=== PATIENT | female | born 1985 | race Caucasian/White ===

== ENCOUNTER 2019-05-26 00:57 | Observation (INO) | payer MEDICAID ==
[2019-05-26] MEDS ORDERED: Clindamycin Phosphate 900 MG/6 ML SDV ONE (01:58)
[2019-05-26] MEDS ORDERED: Sodium Chloride 0.9% 100 ML ONE (01:59)
[2019-05-26] MEDS ORDERED: Clindamycin Phosphate 900 MG in Sodium Chloride 0.9% 100 ML IV ONE (02:00)
[2019-05-26] MEDS ORDERED: ePHEDrine 50 MG/ML SDV IVPUSH PRN ×2 (02:51→03:15)
[2019-05-26] MEDS ORDERED: Sodium Chloride 0.9% 10 ML Syringe FLUSH PRN ×2 (02:51→03:15)
[2019-05-26] MEDS ORDERED: Lactated Ringers 1,000 ML IV ONE (02:51)
[2019-05-26] MEDS ORDERED: Sodium Chloride 0.9% 1,000 ML IV SCH (03:00)
[2019-05-26] MEDS ORDERED: diphenhydrAMINE 50 MG/ML SDV IVPUSH PRN ×2 (03:15)
[2019-05-26] MEDS ORDERED: Naloxone 0.4 MG/ML SDV IVPUSH PRN (03:15)
--- NOTE | 2019-05-26 03:49 | PCM.PNLD ---
Labor Progress Note - VS & Meds Active Medications: Current Medications Diphenhydramine HCl (Benadryl) 25 mg IVPUSH Q6H PRN PRN Reason: Itching Diphenhydramine HCl (Benadryl) 50 mg IVPUSH Q6H PRN PRN Reason: Itching Ephedrine Sulfate (Ephedrine Sulfate) 10 mg IVPUSH ASDIRECTED PRN PRN Reason: Hypotension Lactated Ringer's (Ringers, Lactated) 1,000 mls @ 999 mls/hr IV .BOLUS ONE Stop: 05/26/19 03:51 Last Admin: 05/26/19 02:00 Dose: 999 mls/hr Sodium Chloride (Normal Saline) 1,000 mls @ 125 mls/hr IV ASDIRECTED SANTHOSH Last Admin: 05/26/19 03:28 Dose: 125 mls/hr Clindamycin Phosphate 900 mg/ (Sodium Chloride) 106 mls @ 212 mls/hr IV Q8H SANTHOSH Oxytocin 20 unit/ Lactated (Ringer's) 1,002 mls @ 125 mls/hr IV NOW ONE Stop: 05/26/19 11:15 Naloxone HCl (Narcan) 0.1 mg IVPUSH ASDIRECTED PRN PRN Reason: Oversedation Sodium Chloride (Saline Flush) 10 ml FLUSH ASDIRECTED PRN PRN Reason: Keep Vein Open Discontinued Medications Clindamycin Phosphate (Cleocin) Confirm Administered Dose 900 mg .ROUTE .STK- MED ONE Stop: 05/26/19 01:59 Last Admin: 05/26/19 03:28 Dose: Not Given Ephedrine Sulfate (Ephedrine Sulfate) 10 mg IVPUSH ASDIRECTED PRN PRN Reason: Hypotension Sodium Chloride (Normal Saline) Confirm Administered Dose 100 mls @ as directed .ROUTE .STK-MED ONE Stop: 05/26/19 02:00 Last Admin: 05/26/19 03:29 Dose: Not Given Clindamycin Phosphate 900 mg/ (Sodium Chloride) 106 mls @ 200 mls/hr IV ONETIME ONE Stop: 05/26/19 02:31 Last Admin: 05/26/19 03:26 Dose: 200 mls/hr Sodium Chloride (Saline Flush) 10 ml FLUSH ASDIRECTED PRN PRN Reason: Keep Vein Open - Uterine Contractions Contraction Intensity: Mild - Monitoring Monitor Mode: Doppler/Auscultation Heart Rate (FHR) Variability: Moderate (6-25 bmp) Accelerations: Present, 15x15 Decelerations: None Strip Review: Category I - Vaginal Exam Dilation (cm): 3 Effacement (Percent): 75 Station: -1 Cervical Position: Posterior Sterile Vaginal Exam Performed By: Georgiana Jean Vaginal Exam Comment: no cerivcal change for two hours - Labor Progress (Free Text) Labor Progress: no labor progress. going home reviewed signs and symptoms of when to return
[2019-05-26] MEDS ORDERED: Clindamycin Phosphate 900 MG in Sodium Chloride 0.9% 100 ML IV SCH (10:00)
== END 2019-05-26 04:00 | disposition home or self-care (01) ==
LOC: JP.OBCHECK 00:57 → JP.OB 01:10
PROVIDERS: ADMIT Nurse Practitioner Family; ATTEND Nurse Practitioner Family
DX: O47.1 False labor at or after 37 completed weeks of gestation (principal); O98.813 Other maternal infectious and parasitic diseases complicating pregnancy, third trimester; B95.1 Streptococcus, group B, as the cause of diseases classified elsewhere; Z3A.38 38 weeks gestation of pregnancy; Z88.0 Allergy status to penicillin; Z79.899 Other long term (current) drug therapy
CPT/HCPCS: 36415; 80305-QW; 81001; 85025; 96361; 96374; 99211; G0378; J3490; J7030; J7120

== ENCOUNTER 2019-05-26 07:40 | Inpatient (IN) | payer MEDICAID ==
[2019-05-26] MEDS ORDERED: Acetaminophen 325 MG Tab PO PRN (07:53)
[2019-05-26] MEDS ORDERED: Sodium Chloride 0.9% 10 ML Syringe FLUSH PRN ×2 (07:53→07:58)
[2019-05-26] MEDS ORDERED: ePHEDrine 50 MG/ML SDV IVPUSH PRN (07:58)
[2019-05-26] MEDS ORDERED: Naloxone 0.4 MG/ML SDV IVPUSH PRN (07:58)
[2019-05-26] MEDS ORDERED: diphenhydrAMINE 50 MG/ML SDV IVPUSH PRN ×2 (07:58)
--- NOTE | 2019-05-26 08:15 | PCM.LDHP ---
L&D History of Present Illness - General Date of Service: 05/26/19 (active labor) Admit Problem/Dx: Patient Status Order with Admit Dx/Problem 05/26/19 07:53 Patient Status [ADT] Routine Admission Diagnosis/Problem Admission Diagnosis/Problem Source of Information: Patient History Limitations: Reports: No Limitations - History of Present Illness Introduction:: This 34 year old presents in active labor. 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 Patient states contractions got stronger and felt she needed to return. Labs: ABO B neg, had Rhogam at 29 weeks, Rubella immune, HIV neg, GBS positive ( treated during the night at 0200) Timing/Duration: Reports: minutes: (2-3) Location, : Reports: Abdomen Quality: Reports: Pressure Severity: Moderate Improves with: Reports: None Worsens with: Reports: None - Related Data Allergies/Adverse Reactions: Allergies Allergy/AdvReac Type Severity Reaction Status Date / Time amoxicillin [Amoxicillin] Allergy Hives Verified 04/16/14 16:06 Home Medications: Home Meds Vits #93/Iron Fum/FA [ Formula Tablet] 1 each PO DAILY [History] Acetaminophen [Tylenol] 325 mg PO Q4H PRN 05/26/19 [History] Cinnamon Bark [Cinnamon] 500 mg PO DAILY 05/26/19 [History] Past Medical History - Past Health History Medical/Surgical History: Denies 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: : 4 Para: 3 LMP (Approximate): (DIONNA 06/04/19) H&P Review of Systems - Review of Systems: Review Of Systems: See Below General: Reports: No Symptoms HEENT: Reports: No Symptoms Pulmonary: Reports: No Symptoms Cardiovascular: Reports: No Symptoms Gastrointestinal: Reports: No Symptoms Genitourinary: Reports: No Symptoms Musculoskeletal: Reports: No Symptoms Skin: Reports: No Symptoms Psychiatric: Reports: No Symptoms Neurological: Reports: No Symptoms Hematologic/Lymphatic: Reports: No Symptoms Immunologic: Reports: No Symptoms L&D Exam - Exam Exam: See Below - OB Specific Contraction Intensity: Moderate to Strong Movement: Active Heart Tones: Present Heart Tones per Min: 140 Heart Rate (FHR) Variability: Moderate (6-25 bmp) Presentation: Vertex Estimated Weight: 6 pounds - Savage Score Savage Score Cervix Position: Anterior Savage Score Consistency: Soft Savage Score Effacement: >80% Savage Score Dilation: 3-4 cm Savage Score 's Station: -1 ,0 Savage Score Total: 11 - Exam General: Alert, Oriented HEENT: PERRLA, Conjunctiva Clear, EACs Clear, EOMI, Hearing Intact, Mucosa Moist & [place], Nares Patent, Normal Nasal Septum, Posterior Pharynx Clear, TMs Clear Neck: Supple, Trachea Midline Lungs: Clear to Auscultation, Normal Respiratory Effort Cardiovascular: Regular Rate, Regular Rhythm GI/Abdominal Exam: Normal Bowel Sounds, Soft, Non-Tender, No Organomegaly, No Distention, No Abnormal Bruit, No Mass, Pelvis Stable Rectal Exam: Normal Exam, Normal Rectal Tone Genitourinary: Normal external exam, Normal bimanual exam, Normal speculum exam Back Exam: Normal Inspection, Full Range of Motion Extremities: Normal Inspection, Normal Range of Motion, Non-Tender, No Pedal Edema, Normal Capillary Refill Skin: Warm, Dry, Intact Neurological: Cranial Nerves Intact, Reflexes Equal Bilateral Psychiatric: Alert, Normal Affect, Normal Mood - Problem List (1) Active labor at term SNOMED Code(s): 09477507 ICD Code: [id number] - Status: Acute Current Visit: Yes (2) Normal SNOMED Code(s): 10322222 ICD Code: Z34.90 - ENCNTR FOR SUPRVSN OF NORMAL , UNSP, UNSP TRIMESTER Status: Acute Current Visit: Yes (3) GBS (group B Streptococcus carrier), +RV culture, currently SNOMED Code(s): 7133394445443, 997816367, 3281704639208 ICD Code: O99.820 - STREPTOCOCCUS B CARRIER STATE COMPLICATING Status: Acute Current Visit: Yes Problem List Initiated/Reviewed/Updated: Yes Orders Last 24hrs: Active Orders 24 hr Category Date Time Status Patient Status [ADT] Routine ADT 05/26/19 07:53 Active Ambulate [RC] PER UNIT ROUTINE Care 05/26/19 07:53 Active Communication Order [RC] ASDIRECTED Care 05/26/19 07:53 Active Communication Order [RC] ROUTINE Care 05/26/19 07:59 Active Communication Order [RC] ROUTINE Care 05/26/19 07:59 Active Communication Order [RC] ROUTINE Care 05/26/19 07:59 Active Heart Tones [RC] PER UNIT ROUTINE Care 05/26/19 07:53 Active Non Stress Test [RC] Click to Edit Care 05/26/19 07:53 Active May Shower [RC] ASDIRECTED Care 05/26/19 07:53 Active Notify Provider Vital Signs [RC] PRN Care 05/26/19 07:53 Active Notify Provider [RC] PRN Care 05/26/19 07:53 Active Oxygen Therapy [RC] ASDIRECTED Care 05/26/19 07:59 Active PCEA Epidural [RC] ASDIRECTED Care 05/26/19 07:59 Active PCEA Epidural [RC] ASDIRECTED Care 05/26/19 07:59 Active Peripheral IV Care [RC] . DIRECTED Care 05/26/19 07:59 Active Pulse Oximetry [RC] ASDIRECTED Care 05/26/19 07:59 Active Up ad Carla [RC] ASDIRECTED Care 05/26/19 07:53 Active VTE/DVT Education [RC] Click to Edit Care 05/26/19 07:56 Active Vital Signs [RC] PER UNIT ROUTINE Care 05/26/19 07:53 Active Vital Signs [RC] PER UNIT ROUTINE Care 05/26/19 07:59 Active Regular Diet [DIET] Diet 05/26/19 Breakfast Active Acetaminophen [Tylenol] Med 05/26/19 07:53 Active 650 mg PO Q4H PRN Naloxone [Narcan] Med 05/26/19 07:58 Active 0.1 mg IVPUSH ASDIRECTED PRN Sodium Chloride 0.9% [Saline Flush] Med 05/26/19 07:53 Active 10 ml FLUSH ASDIRECTED PRN Sodium Chloride 0.9% [Saline Flush] Med 05/26/19 07:58 Active 10 ml FLUSH ASDIRECTED PRN diphenhydrAMINE [Benadryl] Med 05/26/19 07:58 Active 25 mg IVPUSH Q6H PRN diphenhydrAMINE [Benadryl] Med 05/26/19 07:58 Active 50 mg IVPUSH Q6H PRN ePHEDrine [ePHEDrine sulfate] Med 05/26/19 07:58 Active 10 mg IVPUSH ASDIRECTED PRN DVT/VTE Prophylaxis Reflex [OM.PC] Routine Oth 05/26/19 07:53 Ordered Epidural Catheter Management [OM.PC] Routine Oth 05/26/19 07:59 Ordered Peripheral IV Insertion Pediatric [OM.PC] Routine Oth 05/26/19 07:59 Ordered Saline Lock Insert [OM.PC] Routine Oth 05/26/19 07:53 Ordered Resuscitation Status Routine Resus Stat 05/26/19 07:53 Ordered Medication Orders Acetaminophen (Tylenol) 650 mg PO Q4H PRN PRN Reason: Pain (Mild 1-3) and fever Diphenhydramine HCl (Benadryl) 25 mg IVPUSH Q6H PRN PRN Reason: Itching Diphenhydramine HCl (Benadryl) 50 mg IVPUSH Q6H PRN PRN Reason: Itching Ephedrine Sulfate (Ephedrine Sulfate) 10 mg IVPUSH ASDIRECTED PRN PRN Reason: Hypotension Naloxone HCl (Narcan) 0.1 mg IVPUSH ASDIRECTED PRN PRN Reason: Oversedation Sodium Chloride (Saline Flush) 10 ml FLUSH ASDIRECTED PRN PRN Reason: Keep Vein Open Sodium Chloride (Saline Flush) 10 ml FLUSH ASDIRECTED PRN PRN Reason: Keep Vein Open Assessment/Plan Comment:: 34 year old active labor Epidural for pain management Treat GBS with clindamycin plan for vaginal delivery
[2019-05-26] MEDS ORDERED: Clindamycin Phosphate 900 MG in Sodium Chloride 0.9% 100 ML IV SCH (10:00)
[2019-05-26] MEDS ORDERED: Ropivacaine 100 ML ONE (10:33)
--- NOTE | 2019-05-26 10:42 | ANES ---
DATE OF SERVICE: 05/26/2019 TIME: 8:40. INDICATION: I was called by Georgiana Jean to evaluate Ms. Padilla for a labor epidural. She is moving quite nicely and in active labor. Please see the orders for the patient's preprocedure diagnosis. Risks and benefits were explained to the patient. She wished to proceed with labor epidural. TECHNIQUE: She was placed in a sitting position. Her back was prepped x3 with Betadine, 1% lidocaine skin local was used. The epidural was placed at L3-L4 using a 17-gauge Tuohy needle in loss of resistance technique. The epidural had very good feel throughout and the epidural space was easily identified. There was negative CSF, negative blood, and negative paresthesias noted. Therefore, a catheter was threaded to 13 cm at the skin. There was negative CSF, negative blood, and negative paresthesias with the catheter. Therefore, a test dose of 1.5% lidocaine with epinephrine was given, this test dose was negative. The catheter was then secured with Tegaderm tape. Patient was placed in supine position. A 0.2% ropivacaine bolus of 10 mL was given. This bolus had good relief and her vital signs remained stable; therefore, 0.2% ropivacaine drip was started at 12 mL/h. Vital signs remained stable throughout procedure and nurse was with me for the entire procedure. We will continue monitor throughout her Labor and Delivery stay. Shakeel Ordaz CRNA /[id number]
[2019-05-26] MEDS ORDERED: Lanolin 100% Cream 40 GM Tube TOP PRN (11:08)
[2019-05-26] MEDS ORDERED: Witch Hazel Medicated Pads 100/Jar TOP PRN (11:08)
[2019-05-26] MEDS ORDERED: Acetaminophen 325 MG Tab, 50 Tab Bulk Bottle PO PRN (11:08)
[2019-05-26] MEDS ORDERED: Ibuprofen 200 MG Tab, 24 Tab Bulk Bottle PO PRN (11:08)
[2019-05-26] MEDS ORDERED: Benzocaine 20% Top Spray 56 GM Bottle TOP PRN (11:08)
--- NOTE | 2019-05-26 11:18 | PCM.DEL ---
L & D Note - General Info Date of Service: 05/26/19 Mother's Due Date: 06/04/19 - Delivery Note Labor: Spontaneous Delivery Outcome: Livebirth Infant Delivery Method: Spontaneous Vaginal Delivery-Single Infant Delivery Mode: Spontaneous Presentation: Left Occiput Anterior (SHARRON) Nuchal Cord: None Anesthesia Type: Epidural Amniotic Fluid Description: Clear Episiotomy Type: None Laceration: None Placenta: Intact, Spontaneous Cord: 3 Vessels Estimated Blood Loss: 100 Resuscitation Needed: No : Stimulated, Warmed, [place] Used Provider: Georgiana Jean Score 1 min: 9 (color) Score 5 min: 10 Second Stage Interventions: Reports: Encouragement Given, Pushing Involuntarily , Pushing, McRobert's Position Delivery Comments (Free Text/Narrative):: This 34 year old G4 now P4 who is 38 5/7 weeks gestation delivered at 1051 via a viable female infant in SHARRON position over an intact perineum. was placed on mother's abdomen where she cried spontaneously of 9 , 10. Three vessel cord. Delayed cord clamping and active management of the third stage were used. weight 6-3. The placenta was expressed spontaneously intact. No lacerations to the perineum , cervix, vagina or rectum were found. EBL 100cc Mother and baby to post in stable condition.Baby to breast within 30 minutes of delivery. First stage 8053-7694 Second stage 2320-0465 Third stage 9395-7976 - General Info Date of Service: 05/26/19 Admission Dx/Problem (Free Text): Patient Status Order with Admit Dx/Problem 05/26/19 07:53 Patient Status [ADT] Routine Admission Diagnosis/Problem Admission Diagnosis/Problem Functional Status: Reports: Pain Controlled - Review of Systems General: Reports: No Symptoms HEENT: Reports: No Symptoms Pulmonary: Reports: No Symptoms Cardiovascular: Reports: No Symptoms Gastrointestinal: Reports: No Symptoms Genitourinary: Reports: No Symptoms Musculoskeletal: Reports: No Symptoms Skin: Reports: No Symptoms Neurological: Reports: No Symptoms Psychiatric: Reports: No Symptoms - Patient Data Vitals - Most Recent: Last Vital Signs Temp 98.6 F 05/26/19 08:17 Pulse 75 05/26/19 08:52 Resp 16 05/26/19 08:52 BP 117/65 05/26/19 08:52 Pulse Ox 98 05/26/19 08:52 Weight - Most Recent: 136 lb 0.015 oz Med Orders - Current: Current Medications Acetaminophen (Tylenol) 650 mg PO Q4H PRN PRN Reason: Pain (Mild 1-3) and fever Diphenhydramine HCl (Benadryl) 25 mg IVPUSH Q6H PRN PRN Reason: Itching Diphenhydramine HCl (Benadryl) 50 mg IVPUSH Q6H PRN PRN Reason: Itching Ephedrine Sulfate (Ephedrine Sulfate) 10 mg IVPUSH ASDIRECTED PRN PRN Reason: Hypotension Clindamycin Phosphate 900 mg/ (Sodium Chloride) 106 mls @ 200 mls/hr IV Q8H SANTHOSH Last Admin: 05/26/19 09:58 Dose: 200 mls/hr Oxytocin/Sodium Chloride (Pitocin In Ns 20 Units/1,000 Ml) 20 unit in 1,000 mls @ 9 mls/hr IV TITRATE SANTHOSH; Protocol Naloxone HCl (Narcan) 0.1 mg IVPUSH ASDIRECTED PRN PRN Reason: Oversedation Sodium Chloride (Saline Flush) 10 ml FLUSH ASDIRECTED PRN PRN Reason: Keep Vein Open Sodium Chloride (Saline Flush) 10 ml FLUSH ASDIRECTED PRN PRN Reason: Keep Vein Open Discontinued Medications Oxytocin/Sodium Chloride (Pitocin In Ns 20 Units/1,000 Ml) Confirm Administered Dose 20 unit in 1,000 mls @ as directed .ROUTE .Total AttorneysMED ONE Stop: 05/26/19 08:43 Last Admin: 05/26/19 09:30 Dose: 3 mls/hr Ropivacaine (Naropin 0.2%) Confirm Administered Dose 100 mls @ as directed .ROUTE .CuculusK-MED ONE Stop: 05/26/19 10:34 - Exam General: Alert, Oriented HEENT: Pupils Equal, Pupils Reactive Neck: Supple Lungs: Normal Respiratory Effort Cardiovascular: Regular Rate, Regular Rhythm GI/Abdominal Exam: Normal Bowel Sounds, Soft, Non-Tender (Female) Exam: Cervical Dilatation, Enlarged Uterus, Vaginal Bleeding Back Exam: Normal Inspection Extremities: Normal Range of Motion, No Pedal Edema, Normal Capillary Refill Skin: Warm, Dry, Intact Wound/Incisions: Healing Well Psy/Mental Status: Alert, Normal Affect, Normal Mood - Problem List & Annotations (1) Active labor at term SNOMED Code(s): 78609707 Code(s): TWE2699 - Status: Acute Current Visit: Yes (2) Normal SNOMED Code(s): 44637710 Code(s): Z34.90 - ENCNTR FOR SUPRVSN OF NORMAL , UNSP, UNSP TRIMESTER Status: Acute Current Visit: Yes (3) GBS (group B Streptococcus carrier), +RV culture, currently SNOMED Code(s): 3704148431101, 884352006, 7273144643785 Code(s): O99.820 - STREPTOCOCCUS B CARRIER STATE COMPLICATING Status: Acute Current Visit: Yes (4) Normal labor and delivery SNOMED Code(s): 49879127, 26619087 Code(s): O80 - ENCOUNTER FOR FULL-TERM UNCOMPLICATED DELIVERY Status: Acute Current Visit: Yes - Problem List Review Problem List Initiated/Reviewed/Updated: Yes - My Orders Last 24 Hours: My Active Orders 05/26/19 10:00 Clindamycin Phosphate [Cleocin] 900 mg Sodium Chloride 0.9% [Normal Saline] 100 ml IV Q8H Oxytocin/Normal Saline [Pitocin in NS 20 Units/1,000 ML] 20 unit in 1,000 ml IV TITRATE 05/26/19 11:08 Patient Status [ADT] Routine Vital Signs [RC] PFP RHIG WORKUP, [BBK] Routine Acetaminophen [Tylenol Bulk Bottle] 325 mg PO Q4H PRN Benzocaine [[id number] 20% Fine] See Dose Instructions TOP Q4H PRN Ibuprofen [Motrin Bulk Bottle] 600 mg PO Q6H PRN Lanolin [Lansinoh HPA] 1 gm TOP ASDIRECTED PRN Witch Serena [Tucks] 1 pad TOP ASDIRECTED PRN Assess Lochia [WOMSER] Per Unit Routine Assess Uterine Involution [WOMSER] Per Unit Routine 05/26/19 11:09 Ice Therapy [OM.PC] Per Unit Routine Perineal Care [OM.PC] Per Unit Routine Peripheral IV Discontinue [OM.PC] Routine Sitz Bath [OM.PC] Per Unit Routine 05/27/19 05:11 CBC WITH AUTO DIFF [HEME] AM - Assessment Assessment:: 05/26/19 This 34 year old G4 now P4 with complications GBS positive had two doses of Clindamycin prior to delivery breast feeding ABO B neg, Rhogam workup needed. CBC in am - Plan Plan:: 34 year old active labor Epidural for pain management Treat GBS with clindamycin plan for vaginal delivery 05/26/19 Routine cares support Rhogam if needed 48 hour stay, due to GBS
[2019-05-26] MEDS: Docusate Sodium 100 MG Cap PO PRN (20:57)
[2019-05-27] MEDS: Docusate Sodium 100 MG Cap PO PRN (07:31)
--- NOTE | 2019-05-27 08:17 | PCM.PNPP ---
- General Info Date of Service: 05/27/19 Functional Status: Reports: Pain Controlled - Review of Systems General: Reports: No Symptoms HEENT: Reports: No Symptoms Pulmonary: Reports: No Symptoms Cardiovascular: Reports: No Symptoms Gastrointestinal: Reports: No Symptoms Genitourinary: Reports: No Symptoms Musculoskeletal: Reports: No Symptoms Skin: Reports: No Symptoms Neurological: Reports: No Symptoms Psychiatric: Reports: No Symptoms - General Info Date of Service: 05/27/19 - Patient Data Vital Signs - Most Recent: Last Vital Signs Temp 35.9 C 05/27/19 07:51 Pulse 70 05/27/19 07:51 Resp 16 05/27/19 07:51 BP 124/71 05/27/19 07:51 Pulse Ox 100 05/27/19 07:51 Weight - Most Recent: 61.689 kg I&O - Last 24 Hours: Intake & Output 05/26/19 05/27/19 05/27/19 22:59 06:59 14:59 Intake Total 750 740 Balance 750 740 Lab Results - Last 24 Hours: Laboratory Results - last 24 hr 05/27/19 Range/Units 05:39 WBC 13.4 H (4.5-11.0) K/uL RBC 4.76 (3.30-5.50) M/uL Hgb 13.9 (12.0-15.0) g/dL Hct 41.6 (36.0-48.0) % MCV 87 (80-98) fL MCH 29 (27-31) pg MCHC 33 (32-36) % Plt Count 172 (150-400) K/uL Neut % (Auto) 79 H (36-66) % Lymph % (Auto) 12 L (24-44) % [place] % (Auto) 8 H (2-6) % Eos % (Auto) 1 L (2-4) % Baso % (Auto) 0 (0-1) % Med Orders - Current: Current Medications Acetaminophen (Tylenol Bulk Bottle) 325 - 650 mg PO Q4H PRN PRN Reason: Pain Benzocaine (Vvbj-O-Mxwwsav 20% [place]) 0 gm TOP Q4H PRN PRN Reason: Perineal Comfort Measure Diphenhydramine HCl (Benadryl) 25 mg IVPUSH Q6H PRN PRN Reason: Itching Diphenhydramine HCl (Benadryl) 50 mg IVPUSH Q6H PRN PRN Reason: Itching Docusate Sodium (Colace) 100 mg PO DAILY PRN PRN Reason: Constipation Last Admin: 05/27/19 07:31 Dose: 100 mg Emollient Ointment (Lansinoh Hpa) 0 gm TOP ASDIRECTED PRN PRN Reason: Sore Nipples Ephedrine Sulfate (Ephedrine Sulfate) 10 mg IVPUSH ASDIRECTED PRN PRN Reason: Hypotension Oxytocin/Sodium Chloride (Pitocin In Ns 20 Units/1,000 Ml) 20 unit in 1,000 mls @ 9 mls/hr IV TITRATE SANTHOSH; Protocol Last Titration: 05/26/19 10:00 Dose: 2 munits/min, 6 mls/hr Ibuprofen (Motrin Bulk Bottle) 600 mg PO Q6H PRN PRN Reason: Pain Last Admin: 05/26/19 19:05 Dose: 1 bottle Naloxone HCl (Narcan) 0.1 mg IVPUSH ASDIRECTED PRN PRN Reason: Oversedation Sodium Chloride (Saline Flush) 10 ml FLUSH ASDIRECTED PRN PRN Reason: Keep Vein Open Sodium Chloride (Saline Flush) 10 ml FLUSH ASDIRECTED PRN PRN Reason: Keep Vein Open Witch Serena (Tucks) 1 pad TOP ASDIRECTED PRN PRN Reason: Hemorrhoids Discontinued Medications Acetaminophen (Tylenol) 650 mg PO Q4H PRN PRN Reason: Pain (Mild 1-3) and fever Clindamycin Phosphate 900 mg/ (Sodium Chloride) 106 mls @ 200 mls/hr IV Q8H SANTHOSH Last Admin: 05/26/19 09:58 Dose: 200 mls/hr Oxytocin/Sodium Chloride (Pitocin In Ns 20 Units/1,000 Ml) Confirm Administered Dose 20 unit in 1,000 mls @ as directed .ROUTE .STK-MED ONE Stop: 05/26/19 08:43 Last Admin: 05/26/19 09:30 Dose: 3 mls/hr Ropivacaine (Naropin 0.2%) Confirm Administered Dose 100 mls @ as directed .ROUTE .STK-MED ONE Stop: 05/26/19 10:34 - Interaction Disposition, : [place] in Room with Family Infant Interaction: Holding Infant Feeding: Breastfed Infant; Nursed Well Support Person: - Recovery Exam Fundal Tone: Firm Fundal Level: 3 Fingerbreadths Below Umbilicus Fundal Placement: Midline Lochia Amount: Scant Lochia Color: Rubra/Red Perineum Description: Intact, Minimal Bruising/Swelling Episiotomy/Laceration: None Bladder Status: Voiding Urinary Elimination: Voided - Exam General: Alert, Oriented HEENT: Pupils Equal Neck: Supple Lungs: Clear to Auscultation, Normal Respiratory Effort Cardiovascular: Regular Rate, Regular Rhythm GI/Abdominal Exam: Normal Bowel Sounds, Soft, Non-Tender, No Organomegaly, No Distention, No Abnormal Bruit, No Mass, Pelvis Stable Extremities: Normal Inspection, Normal Range of Motion, Non-Tender, No Pedal Edema, Normal Capillary Refill Skin: Warm, Dry, Intact Neurological: No New Focal Deficit Psy/Mental Status: Alert, Normal Affect, Normal Mood - Problem List & Annotations (1) Vaginal delivery SNOMED Code(s): 557723162 Code(s): O80 - ENCOUNTER FOR FULL-TERM UNCOMPLICATED DELIVERY Status: Acute Current Visit: Yes (2) Normal labor and delivery SNOMED Code(s): 91004826, 27871359 Code(s): O80 - ENCOUNTER FOR FULL-TERM UNCOMPLICATED DELIVERY Status: Acute Current Visit: Yes (3) Normal SNOMED Code(s): 26694245 Code(s): Z34.90 - ENCNTR FOR SUPRVSN OF NORMAL , UNSP, UNSP TRIMESTER Status: Acute Current Visit: Yes (4) Gestational diabetes mellitus SNOMED Code(s): 24439633 Code(s): O24.419 - GESTATIONAL DIABETES MELLITUS IN , UNSP CONTROL Status: Acute Current Visit: No (5) Tobacco user SNOMED Code(s): 117216165 Code(s): Z72.0 - TOBACCO USE Status: Acute Current Visit: No - Problem List Review Problem List Initiated/Reviewed/Updated: Yes - My Orders Last 24 Hours: My Active Orders 05/26/19 07:53 Ambulate [RC] PER UNIT ROUTINE May Shower [RC] ASDIRECTED Notify Provider Vital Signs [RC] PRN Up ad Carla [RC] ASDIRECTED Sodium Chloride 0.9% [Saline Flush] 10 ml FLUSH ASDIRECTED PRN DVT/VTE Prophylaxis Reflex [OM.PC] Routine Saline Lock Insert [OM.PC] Routine Resuscitation Status Routine 05/26/19 07:56 VTE/DVT Education [RC] Click to Edit 05/26/19 07:58 Naloxone [Narcan] 0.1 mg IVPUSH ASDIRECTED PRN Sodium Chloride 0.9% [Saline Flush] 10 ml FLUSH ASDIRECTED PRN diphenhydrAMINE [Benadryl] 25 mg IVPUSH Q6H PRN diphenhydrAMINE [Benadryl] 50 mg IVPUSH Q6H PRN ePHEDrine [ePHEDrine sulfate] 10 mg IVPUSH ASDIRECTED PRN 05/26/19 07:59 Oxygen Therapy [RC] ASDIRECTED Peripheral IV Care [RC] . DIRECTED Pulse Oximetry [RC] ASDIRECTED Epidural Catheter Management [OM.PC] Routine Peripheral IV Insertion Pediatric [OM.PC] Routine 05/26/19 Breakfast Regular Diet [DIET] - Assessment Assessment:: 05/26/19 This 34 year old G4 now P4 with complications GBS positive had two doses of Clindamycin prior to delivery breast feeding ABO B neg, Rhogam workup needed. CBC in am 05/27/2019 day one well Fundus firm and bleeding decreased Hgb-13.9 GBS positive received treatment Anxious and requesting to go home at 24 hours - Plan Plan:: 34 year old active labor Epidural for pain management Treat GBS with clindamycin plan for vaginal delivery 05/26/19 Routine cares support Rhogam if needed 48 hour stay, due to GBS 05/27/19 Continue routine cares Continue to support and encourage Discharge home per patient request
== END 2019-05-27 13:20 | disposition home or self-care (01) | DRG 806 ==
LOC: JP.OBCHECK 07:40 → JP.OB 07:52 → OBSVTOIN 10:51 → JP.OB 10:51 → JP.MS 12:30
PROVIDERS: ADMIT Nurse Practitioner Family; ATTEND Nurse Practitioner Family
PROC: 10E0XZZ Delivery of Products of Conception, External Approach (ICD-10-PCS; principal; 2019-05-26)
PROC: 00HU33Z Insertion of Infusion Device into Spinal Canal, Percutaneous Approach (ICD-10-PCS; 2019-05-26)
PROC: 3E0R3BZ Introduction of Anesthetic Agent into Spinal Canal, Percutaneous Approach (ICD-10-PCS; 2019-05-26)
DX: O99.824 Streptococcus B carrier state complicating childbirth (principal); O98.813 Other maternal infectious and parasitic diseases complicating pregnancy, third trimester; Z37.0 Single live birth; O24.429 Gestational diabetes mellitus in childbirth, unspecified control; O99.334 Smoking (tobacco) complicating childbirth; Z3A.38 38 weeks gestation of pregnancy; Z88.1 Allergy status to other antibiotic agents; O47.1 False labor at or after 37 completed weeks of gestation; B95.1 Streptococcus, group B, as the cause of diseases classified elsewhere; Z88.0 Allergy status to penicillin; Z79.899 Other long term (current) drug therapy
CPT/HCPCS: 36415; 51702; 59409; 80305-QW; 81001; 85025; 96361; 96374; 99211; A9270-GY; G0378; J2590; J2795; J3490; J7030; J7120